=== PATIENT | female | born 2000 | race African-American/Black ===

== ENCOUNTER 2024-03-15 18:38 | Emergency (ER) | payer MEDICAID ==
[~2024-03-15] VITALS: Ht 165.1 cm; Wt 68.0 kg
[2024-03-15 18:41] VITALS: BP 137/97; PULSE 96; TEMP 98.1; O2SAT 100
[2024-03-15] MEDS ORDERED: IBUP-2028 MT (19:48)
[2024-03-15] MEDS ORDERED: DEXA4TAB MT (19:48)
[2024-03-15 20:00] VITALS: RESP 16
== END 2024-03-15 20:01 | disposition home or self-care (01) ==
LOC: ER 18:38
DX: J02.9 Acute pharyngitis, unspecified (principal); Z79.52 Long term (current) use of systemic steroids
CPT/HCPCS: 87070; 87430; 99283

== ENCOUNTER 2024-03-25 12:13 | Emergency (ER) | payer MEDICAID ==
[~2024-03-25] VITALS: Ht 167.6 cm; Wt 75.0 kg
[~2024-03-25 12:13] MED LIST: DEXA4TAB MT; IBUP-2028 MT
[2024-03-25 12:38] VITALS: TEMP 98; O2SAT 98
[2024-03-25] MEDS: PENICILLIN G BENZATHINE 1,200,000 UNITS/2ML SYR IM NR (14:48)
[2024-03-25 14:50] VITALS: BP 132/64; PULSE 68; RESP 18; O2SAT 99
== END 2024-03-25 14:51 | disposition home or self-care (01) ==
LOC: ER 12:13
DX: J02.0 Streptococcal pharyngitis (principal)
CPT/HCPCS: 96372; 99283; J0561

== ENCOUNTER 2024-07-31 14:42 | Emergency (ER) | payer BC, MEDICAID ==
[~2024-07-31] VITALS: Ht 167.6 cm; Wt 70.0 kg
[2024-07-31 14:47] VITALS: O2SAT 97
[2024-07-31 14:48] VITALS: BP_SYST 127; PULSE 72; RESP 18; TEMP 36.8; O2SAT 100
== END 2024-07-31 17:30 | disposition home or self-care (01) ==
LOC: ER 14:42
DX: H92.02 Otalgia, left ear (principal)
CPT/HCPCS: 99281

== ENCOUNTER 2024-08-04 19:23 | Emergency (ER) | payer MEDICAID ==
[~2024-08-04] VITALS: Ht 167.6 cm; Wt 70.0 kg
[2024-08-04 19:25] VITALS: O2SAT 98
[2024-08-04 19:27] VITALS: BP 136/88; PULSE 90; RESP 16; TEMP 37; O2SAT 100
== END 2024-08-04 19:45 | disposition left against medical advice (07) ==
LOC: ER 19:23
DX: H93.292 Other abnormal auditory perceptions, left ear (principal); Z53.21 Procedure and treatment not carried out due to patient leaving prior to being seen by health care provider

== ENCOUNTER 2024-08-05 08:41 | Emergency (ER) | payer MEDICAID ==
[~2024-08-05] VITALS: Ht 167.6 cm; Wt 71.0 kg
[2024-08-05 08:47] VITALS: BP 126/83; PULSE 96; RESP 18; TEMP 36.9; O2SAT 99
== END 2024-08-05 09:37 | disposition home or self-care (01) ==
LOC: ER 08:41
DX: H92.02 Otalgia, left ear (principal)
CPT/HCPCS: 99281